=== PATIENT | female | born 1965 | race Caucasian/White ===

== ENCOUNTER → 2016-08-03 | Outpatient (CLI) | payer OTHER ==
[2016-08-03 20:22] LABS: ALBUMIN 3.5 GM/DL (3.2-5.2); ALBUMIN/GLOBULIN RATIO 1.25 (1.00-1.93); ALKALINE PHOSPHATASE 58 U/L (45-117); ALT/SGPT 27 U/L (12-78); ANION GAP 8 MEQ/L (8-16); AST/SGOT 17 U/L (15-37); BILIRUBIN,TOTAL 0.5 MG/DL (0.2-1.0); BLOOD UREA NITROGEN 6 MG/DL (7-18); CALCIUM LEVEL 8.4 MG/DL (8.5-10.1); CARBON DIOXIDE LEVEL 26 MEQ/L (21-32); CHLORIDE LEVEL 105 MEQ/L (98-107); CREATININE FOR GFR 0.61 MG/DL (0.55-1.02); FREE T4 1.03 NG/DL (0.76-1.46); GLOMERULAR FILTRATION RATE > 60.0 (>58); GLUCOSE, FASTING 75 MG/DL (70-105); POTASSIUM SERUM 4.1 MEQ/L (3.5-5.1); SODIUM LEVEL 139 MEQ/L (136-145); TOTAL PROTEIN 6.3 GM/DL (6.4-8.2)
== END ==
LOC: M WUC 17:05
PROVIDERS: ATTEND Family Medicine
DX: R63.5 Abnormal weight gain (principal)

== ENCOUNTER → 2016-08-10 | Outpatient (CLI) | payer OTHER ==
--- NOTE | 2016-08-10 18:25 | REP ---
PA and lateral chest: Comparison is 03/03/2010. The lung disla are clear. The cardiac size is normal The gala, mediastinum, and bony thorax are unremarkable. Impression: Negative PA and lateral chest. There is no interval change. Signed by Himanshu Balbuena MD 08/10/2016 06:16 P
== END ==
LOC: M ADAMS 17:56
PROVIDERS: ATTEND Physician Assistant
DX: R05 Cough (principal); R06.02 Shortness of breath

== ENCOUNTER → 2018-04-30 | Outpatient (REF) | payer OTHER ==
[2018-05-02 14:24] LABS: HPV HYBRID CAPTURE II Negative (Negative)
== END ==
LOC: M LAB REF 13:19
PROVIDERS: ATTEND Family Medicine
DX: Z12.4 Encounter for screening for malignant neoplasm of cervix (principal); Z11.51 Encounter for screening for human papillomavirus (HPV); R87.610 Atypical squamous cells of undetermined significance on cytologic smear of cervix (ASC-US)
CPT/HCPCS: 87070; 87624; G0123

== ENCOUNTER 2018-06-28 08:16 | Day surgery (SDC) | payer OTHER ==
[~2018-06-28] VITALS: Ht 172.7 cm; Wt 87.5 kg
[~2018-06-28 08:16] MED LIST: ASHL1TAB PO; NS 1,000 ML IV ONE
[2018-06-28] MEDS ORDERED: LIDOCAINE 2% INJ 100 MG/5 ML SDV (FOR ANES.) As Ordered ONE (09:25)
[2018-06-28] MEDS ORDERED: PROPOFOL 200 MG/20 ML VIAL As Ordered ONE (09:25)
--- NOTE | 2018-06-28 10:03 | ROOR ---
Patient Name: Nathalie Robertson Procedure Date: 06/28/2018 9:28 AM Date of : 1965 Age: 52 Room: [facility] Gender: Female Note Status: Finalized Procedure: Total Colonoscopy to Cecum + Cold Snare Polypectomy + Hemoclips Indications: Screening for colorectal malignant neoplasm Providers: Jamison Evans MD Referring MD: AJ TERESA Requesting Provider: Medicines: Monitored Anesthesia Care Complications: No immediate complications. Procedure: Pre-Anesthesia Assessment: - The heart rate, respiratory rate, oxygen saturations, blood pressure, adequacy of pulmonary ventilation, and response to care were monitored throughout the procedure. The Colonoscope was introduced through the anus and advanced to the cecum, identified by appendiceal orifice and ileocecal valve. The colonoscopy was performed without difficulty. The patient tolerated the procedure well. The quality of the bowel preparation was excellent. Findings: The perianal and digital rectal examinations were normal. Non-bleeding internal hemorrhoids were found during retroflexion. The hemorrhoids were small and Grade I (internal hemorrhoids that do not prolapse). Scattered small-mouthed diverticula were found in the recto-sigmoid colon, sigmoid colon and descending colon. A localized area of mildly congested and erythematous mucosa was found at 30 cm proximal to the anus. Biopsies were taken with a cold forceps for histology. Two sessile polyps were found in the ascending colon. The polyps were medium in size. These polyps were removed with a cold snare. Resection and retrieval were complete. To prevent bleeding after the polypectomy, two hemostatic clips were successfully placed (MR conditional). There was no bleeding at the end of the procedure. The exam was otherwise without abnormality on direct and retroflexion views. Impression: - Non-bleeding internal hemorrhoids. - Diverticulosis in the recto-sigmoid colon, in the sigmoid colon and in the descending colon. - Congested and erythematous mucosa at 30 cm proximal to the anus. Biopsied. - Two medium polyps in the ascending colon, removed with a cold snare. Resected and retrieved. Clips (MR conditional) were placed. - The examination was otherwise normal on direct and retroflexion views. - The exam was otherwise normal to the cecum. Recommendation: - Patient has a contact number available for emergencies. The signs and symptoms of potential delayed complications were discussed with the patient. Return to normal activities tomorrow. Written discharge instructions were provided to the patient. - High fiber diet. - Discharge patient to home. - Continue present medications. - Await pathology results. - Telephone GI clinic for pathology results in 1 week. - Repeat colonoscopy for surveillance based on pathology results. - Return to referring physician. - The findings and recommendations were discussed with the patient's family. Jamison Evans MD Jamison Evans MD 06/28/2018 10:02:49 AM Electronically signed by Jamison Evans MD Number of Addenda: 0 Note Initiated On: 06/28/2018 9:28 AM Estimated Blood Loss: Estimated blood loss: none.
[2018-06-28 10:20] VITALS: BP 143/82
== END 2018-06-28 10:33 | disposition home or self-care (01) ==
LOC: M OPP 08:16
PROVIDERS: ATTEND Internal Medicine Gastroenterology
DX: D12.2 Benign neoplasm of ascending colon (principal); K64.0 First degree hemorrhoids; K63.89 Other specified diseases of intestine; K57.30 Diverticulosis of large intestine without perforation or abscess without bleeding; Z12.11 Encounter for screening for malignant neoplasm of colon

== ENCOUNTER → 2018-12-10 | Outpatient (CLI) | payer OTHER ==
[~2018-12-10] MED LIST changes: -NS 1,000 ML IV ONE
--- NOTE | 2018-12-10 14:01 | REP ---
Right ankle series: Four views. History: Pain in the right ankle. Status post injury. Comparison right ankle radiographs April 24, 2007. Findings: Ankle mortise is intact. No tibial or fibular fracture is seen. There is plantar calcaneal spurring. A small Achilles calcaneal spur is also noted. Soft tissues are unremarkable. Impression: No fracture seen. Electronically Signed by Michael Melendez MD 12/10/2018 06:46 P
== END ==
LOC: M SMT 12:58
PROVIDERS: ATTEND Pediatrics
DX: M25.571 Pain in right ankle and joints of right foot (principal)

== ENCOUNTER → 2019-11-20 | Outpatient (CLI) | payer OTHER ==
[2019-11-20 17:01] LABS: ALBUMIN 3.4 GM/DL (3.2-5.2); ALT/SGPT 23 U/L (12-78); BILIRUBIN,TOTAL 0.3 MG/DL (0.2-1.0); BLOOD UREA NITROGEN 7 MG/DL (7-18); CALCIUM LEVEL 8.5 MG/DL (8.5-10.1); CARBON DIOXIDE LEVEL 25 MEQ/L (21-32); CHLORIDE LEVEL 107 MEQ/L (98-107); CHOLESTEROL LEVEL 166 MG/DL (<200); CHOLESTEROL RISK RATIO 3.192 (<5); FREE T4 0.99 NG/DL (0.76-1.46); GLOMERULAR FILTRATION RATE > 60.0 (>51); GLUCOSE, FASTING 76 MG/DL (70-100); HDL CHOLESTEROL 52 MG/DL (>40); LDL CHOLESTEROL 99 MG/DL (<100); NON-HDL-C 114 MG/DL; SODIUM LEVEL 137 MEQ/L (136-145); THYROID STIMULATING HORMONE 0.808 uIU/ML (0.358-3.740); TOTAL PROTEIN 6.2 GM/DL (6.4-8.2); TRIGLYCERIDES LEVEL 76 MG/DL (<150)
== END ==
LOC: M WUC 15:02
PROVIDERS: ATTEND Nurse Practitioner Family
DX: Z00.00 Encounter for general adult medical examination without abnormal findings (principal)

== ENCOUNTER → 2021-09-27 | Outpatient (REF) | payer BC, OTHER ==
[2021-09-27 19:02] LABS: GC DNA AMPLIFICATION NEGATIVE (NEGATIVE)
== END ==
LOC: M LAB REF 16:53
PROVIDERS: ATTEND Nurse Practitioner Family
DX: Z11.3 Encounter for screening for infections with a predominantly sexual mode of transmission (principal)